=== PATIENT | male | born 1950 | race Two or more races ===

== ENCOUNTER 2019-07-29 17:19 | Emergency (ER) | payer SELFPAY ==
[~2019-07-29] VITALS: Ht 172.7 cm; Wt 72.6 kg
[2019-07-29] MEDS ORDERED: predniSONE 10 MG TABLET PO ONE (17:30)
--- NOTE | 2019-07-29 17:30 | NUR ---
Patient been examined by . with Tongan translation by rn.
[2019-07-29] MEDS ORDERED: AMLO5TAB9 PO (17:31)
[2019-07-29] MEDS ORDERED: ALBU8.5H8 INH (17:31)
[2019-07-29] MEDS ORDERED: predniSONE 10 MG TABLET ONE (17:36)
[2019-07-29] MEDS ORDERED: predniSONE 50 MG TABLET ONE (17:37)
[2019-07-29] MEDS ORDERED: MAG HYDROX/AL HYDROX/SIMETH 30 ML LIQUID UDC PO ONE (17:45)
[2019-07-29 17:47] LABS: BASOPHILS # (AUTO) 0.1 K/uL (0.0-8.0); BASOPHILS % (AUTO) 1.1 % (0.0-2.0); EOSINOPHILS # (AUTO) 0.4 K/uL (0.0-0.7); EOSINOPHILS % (AUTO) 4.9 % (0.0-7.0); HEMATOCRIT 37.6 % (36.7-47.1); HEMOGLOBIN 12.8 g/dL (12.5-16.3); LYMPHOCYTES # (AUTO) 2.5 K/uL (20.0-40.0); LYMPHOCYTES % (AUTO) 32.7 % (20.5-51.5); MEAN CORPUSCULAR HEMOGLOBIN 30.2 uug (23.8-33.4); MEAN CORPUSCULAR HGB CONC 34 g/dL (32.5-36.3); MEAN CORPUSCULAR VOLUME 88.7 fL (73.0-96.2); MONOCYTES # (AUTO) 0.5 K/uL (2.0-10.0); NEUTROPHILS # (AUTO) 4.1 K/uL (1.8-8.9); NEUTROPHILS % (AUTO) 54.3 % (38.5-71.5); PLATELET COUNT (AUTO) 252 K/uL (152-348); RED BLOOD CELL COUNT(AUTO) 4.24 MIL/uL (4.06-5.63); WHITE BLOOD COUNT (AUTO) 7.5 K/uL (3.6-10.2)
[2019-07-29] MEDS ORDERED: MAGNESIUM HYDROXIDE 30 ML LIQUID UDC ONE (17:47)
[2019-07-29] MEDS ORDERED: MAG HYDROX/AL HYDROX/SIMETH 30 ML LIQUID UDC ONE (17:48)
[2019-07-29 17:54] LABS: CREATININE 1.2 mg/dL (0.6-1.3); POTASSIUM 3.9 mmol/L (3.5-5.1)
[2019-07-29 18:00] LABS: BILIRUBIN,DIRECT 0.1 mg/dL (0.0-0.2); BILIRUBIN,TOTAL 0.3 mg/dL (0.2-1.0); TOTAL PROTEIN, SERUM 7.9 g/dL (6.4-8.2)
[2019-07-29] MEDS ORDERED: ASPIRIN 81 MG TAB.CHEW ONE (18:10)
--- NOTE | 2019-07-29 18:12 | NUR ---
Dr. Shah at bedside to informed patient of the need to be closely monitor under telemetry for the next 24 hours due to elevated troponing. Patient verbalized understanding but refuse to get admitted stating "there's nothing wrong with my heart" and leave the facility against medical advice.
[2019-07-29] MEDS ORDERED: ASPIRIN 81 MG TAB.CHEW PO ONE (18:15)
--- NOTE | 2019-07-29 18:22 | NUR ---
Patient educated and given his medication prescription, patient persuaded to stay as inpatient and he refused.
--- NOTE | 2019-07-29 18:24 | NUR ---
Patient stating that he has no documents insurance and ID card, and requesting transportation back to his [facility]. charge nurse notified. patient non-cooperative, and refusing to back and wait at bedside.
--- NOTE | 2019-07-29 18:30 | NUR ---
A call to [facility] as instructed by propellant charge loaderrn. Davis at this time I spoke with Andrés and patient's destination given [id number] [facility] ([facility]and [facility] of 2000 with trip # [id number].
--- NOTE | 2019-07-29 18:36 | NUR ---
patient experiencing with hallucinations, stating "this is [place]" get me out of here and back to my hotel"
--- NOTE | 2019-07-29 18:52 | NUR ---
Patient refusing to wait for medical transportation and stated "I'm leaving I'm gonna walk towards my place someone told me its a couple of blocks from Here" With Dr. Pandya as witness pt. persuaded to stay but refuse to do it. Left AMA with steady gait using a cane.
== END 2019-07-29 18:56 | disposition left against medical advice (07) ==
LOC: ER 17:22
DX: R07.89 Other chest pain (principal); J44.9 Chronic obstructive pulmonary disease, unspecified; I70.0 Atherosclerosis of aorta; Z59.0 Homelessness; R79.89 Other specified abnormal findings of blood chemistry
CPT/HCPCS: 99285; 36415; 71045; 80048; 80076; 84484; 85025; 93005; J7512 ×2; 70030-TC; A4663